=== PATIENT | male | born 1980 | race Caucasian/White ===

== ENCOUNTER 2020-07-24 08:49 | Outpatient (CLI) | payer MEDICAID, OTHER ==
[2020-07-24 16:05] LABS: BUN - BLOOD UREA NITROGEN 17 mg/dL (6-20); CALCIUM 9.2 mg/dL (8.5-10.3); CARBON DIOXIDE - CO2 21 mmol/L (21-32); CHLORIDE 107 mmol/L (101-111); CHOLESTEROL 258 mg/dL; CREATININE 0.8 mg/dL (0.6-1.2); GLUCOSE 110 mg/dL (70-100); HDL CHOLESTEROL 52 mg/dL; LDL CHOLESTEROL,CALCULATED 142 mg/dL; LDL/HDL RATIO 2.7 (<3.6); VLDL CHOLESTEROL 64 mg/dL
== END 2020-07-24 08:50 | disposition home or self-care (01) ==
LOC: LAB.S 08:49
PROVIDERS: ATTEND Physician Assistant
DX: Z00.00 Encounter for general adult medical examination without abnormal findings (principal); L98.9 Disorder of the skin and subcutaneous tissue, unspecified; K21.9 Gastro-esophageal reflux disease without esophagitis; Z79.899 Other long term (current) drug therapy
CPT/HCPCS: 36415; 80048; 80061; 83721

== ENCOUNTER 2021-04-03 11:20 | Emergency (ER) | payer OTHER ==
[2021-04-03 11:31] VITALS: BP 150/114
--- NOTE | 2021-04-03 11:46 | ED Physician Documentation ---
History of Present Illness - Stated complaint Stated Complaint: VOMITING BLOOD - Chief complaint Chief Complaint: Abd Pain - Additonal information Additional information: 41-year-old male presents emergency department for evaluation of vomiting bright red blood yesterday evening. He reports that yesterday for much of the day he had generalized stomach discomfort and nausea. He also had many episodes of associated diarrhea that were generally yellow in color. He did drink some purple Pedialyte yesterday evening but shortly thereafter he vomited up. He then had a second episode of emesis which he described as bright red and about a cup of blood. He denies any melena or hematochezia. No history of similar in the past. Denies NSAID use. He describes himself as a social weekend drinker consuming about 10 cans of beer each weekend. No history of similar. Patient reports that for many years he has had some generalized nausea and bloating after eating. He thought he had heartburn and his provider had prescribed omeprazole. Due to insurance changes he stopped taking it about 1 year ago but states that the heartburn symptoms have nearly fully dissipated. He no longer takes an H2 nancy or a PPI. He denies chest pain, shortness of air dyspnea or any syncope. Review of Systems Constitutional: denies: Fever, Chills Eyes: reports: Reviewed and negative Ears: reports: Reviewed and negative Throat: reports: Reviewed and negative Cardiac: reports: Reviewed and negative Respiratory: reports: Reviewed and negative GI: reports: Nausea, Vomiting, Hematemesis. denies: Abdominal Pain, Bloody / black stool : reports: Reviewed and negative Skin: reports: Reviewed and negative Musculoskeletal: reports: Reviewed and negative Neurologic: reports: Reviewed and negative PD PAST MEDICAL HISTORY - Present Medications Home Medications: Ambulatory Orders Medication Instructions Recorded Confirmed No Known Home Medications 04/03/21 04/03/21 - Allergies Allergies/Adverse Reactions: Allergies Allergy/AdvReac Type Severity Reaction Status Date / Time codeine Allergy Hallucinati Verified 04/03/21 11:31 ons PD ED PE NORMAL - General General: Alert and oriented X 3, No acute distress - HEENT HEENT: PERRL - Neck Neck: Supple, no meningeal sign - Cardiac Cardiac: RRR, No murmur - Respiratory Respiratory: Clear bilaterally - Abdomen Abdomen: Normal bowel sounds, Soft, Non tender, Non distended - Back Back: No CVA TTP, No spinal TTP - Derm Derm: Normal color, Warm and dry, No rash Results - Vitals Vitals: Vital Signs - 24 hr 04/03/21 11:28 Temperature 36.9 C Heart Rate 100 Respiratory 16 Rate Blood Pressure 150/114 H O2 Saturation 100 Oxygen O2 Source Room air - Labs Labs: Laboratory Tests 04/03/21 04/03/21 11:54 11:54 WBC 8.3 RBC 5.31 Hgb 16.9 Hct 46.7 MCV 87.9 MCH 31.8 H MCHC 36.2 H RDW 12.3 Plt Count 239 MPV 10.6 Neut # (Auto) 5.4 Lymph # (Auto) 1.9 [place] # (Auto) 0.8 Eos # (Auto) 0.1 Baso # (Auto) 0.0 Absolute Nucleated RBC 0.00 Nucleated RBC % 0.0 Sodium 142 Potassium 3.7 Chloride 103 Carbon Dioxide 26 Anion Gap 13.0 BUN 20 Creatinine 1.0 Estimated GFR (MDRD) 83 L Glucose 115 H Calcium 9.2 Total Bilirubin 1.6 H AST 38 ALT 109 H Alkaline Phosphatase 72 Total Protein 7.8 Albumin 4.5 Globulin 3.3 Albumin/Globulin Ratio 1.4 Lipase 22 PD MEDICAL DECISION MAKING - ED course Complexity details: reviewed results, re-evaluated patient, considered differential, d/w patient ED course: 41-year-old male presents emergency department for evaluation of vomiting bright red blood yesterday evening. He also had some associated diarrhea though there was no melena hematochezia. Today on exam he appears remarkably well. No abdominal tenderness was elicited. Screening labs show very normal hemoglobin 16.9. His electrolytes do show some mild LFT abnormalities with bilirubin of 1.6 and an elevated ALT 109. Patient was reexamined and he remains free of abdominal pain. We discussed that the hematic emesis is atypical. I would recommend that he resume taking omeprazole daily and I will write a prescription for this. I have also recommended that he cut back significantly on his drinking. He should be referred to gastroenterology for further evaluation of this LFT abnormality as well as possible EGD. Patient is to return to the emergency department if he has any further episodes of him had emesis, melena hematochezia, suddenly severe abdominal pain or fevers. Departure - Departure Disposition: 01 Home, Self Care Clinical Impression: Total bilirubin, elevated Hematemesis Qualifiers: Nausea presence: without nausea Qualified Code(s): K92.0 - Hematemesis Condition: Stable Record reviewed to determine appropriate education?: Yes Comments: Scott you were seen today for vomiting blood yesterday evening. As we discussed your screening labs show very healthy and normal hemoglobin. However you do have a mild bilirubin elevation. As we discussed I do recommend that you cut back your alcohol use as much as you are able. You would benefit from referral to a platform architect for evaluation of a possible endoscopy to look for causes of ulcer formation or gastritis in your stomach. I do recommend that you begin taking the omeprazole 20 mg twice daily. If at any point you develop abdominal pain, have black or bloody stools or return of bloody vomit then please return immediately to the ER for a second evaluation.
[2021-04-03 11:59] LABS: BASOPHILS % (AUTO) 0.2 %; EOSINOPHILS # (AUTO) 0.1 10^3/uL (0.0-0.7); EOSINOPHILS % (AUTO) 0.6 %; HCT - HEMATOCRIT 46.7 % (42.0-52.0); HGB - HEMOGLOBIN 16.9 g/dL (14.0-18.0); LYMPHOCYTES # (AUTO) 1.9 10^3/uL (1.5-3.5); LYMPHOCYTES % (AUTO) 23.2 %; MEAN CORPUSCULAR HEMOGLOBIN 31.8 pg (27.0-31.0); MEAN CORPUSCULAR HGB CONC 36.2 g/dL (32.0-36.0); MEAN CORPUSCULAR VOLUME 87.9 fL (80.0-94.0); MEAN PLATELET VOLUME 10.6 fL (7.4-11.4); MONOCYTES # (AUTO) 0.8 10^3/uL (0.0-1.0); MONOCYTES % (AUTO) 10.2 %; NEUTROPHILS # (AUTO) 5.4 10^3/uL (1.5-6.6); NEUTROPHILS % (AUTO) 65.6 %; PLT - PLATELET COUNT 239 10^3/uL (130-450); RED BLOOD COUNT 5.31 10^6/uL (4.70-6.10); RED CELL DISTRIBUTION WIDTH 12.3 % (12.0-15.0); WHITE BLOOD COUNT 8.3 x10^3/uL (4.8-10.8)
[2021-04-03 12:12] LABS: ALBUMIN 4.5 g/dL (3.2-5.5); ALBUMIN/GLOBULIN RATIO 1.4 (1.0-2.2); BILIRUBIN,TOTAL 1.6 mg/dL (0.2-1.0); CALCIUM 9.2 mg/dL (8.5-10.3); POTASSIUM 3.7 mmol/L (3.5-5.0); TOTAL PROTEIN 7.8 g/dL (6.7-8.2)
== END 2021-04-03 12:34 | disposition home or self-care (01) ==
LOC: ED 11:20
DX: K92.0 Hematemesis (principal); R19.7 Diarrhea, unspecified; R74.8 Abnormal levels of other serum enzymes
CPT/HCPCS: 36415; 80053; 83690; 85025; 99283